=== PATIENT | male | born 1985 | race Caucasian/White ===

== ENCOUNTER 2017-05-24 21:34 | Emergency (ER) | payer BC, OTHER ==
--- NOTE | 2017-05-24 23:03 | C.PDOC ---
History Of Present Illness 32 yo male with brief low level sharp left chest discomfort which has resolved. Occurred while driving. No recent illnesses. Time Seen by Provider: 05/24/17 21:41 Chief Complaint (Nursing): Chest Pain History Per: Patient Onset/Duration Of Symptoms: Mins Current Symptoms Are (Timing): Gone Quality: Sharp Associated Symptoms: denies: Nausea, Dyspnea, Diaphoresis, Syncope Past Medical History Vital Signs: Last Vital Signs Temp 98.2 F 05/24/17 23:29 Pulse 78 05/24/17 23:29 Resp 18 05/24/17 23:29 BP 124/85 05/24/17 23:29 Pulse Ox 98 05/24/17 23:29 - Medical History PMH: HTN Other PMH: none Family History: States: Unknown Family Hx - Social History Hx Tobacco Use: No Hx Alcohol Use: No Hx Substance Use: No - Immunization History Hx Tetanus Toxoid Vaccination: No Hx Influenza Vaccination: No Hx Pneumococcal Vaccination: No Review Of Systems Constitutional: Negative for: Fever, Chills Eyes: Negative for: Pain Cardiovascular: Positive for: Chest Pain. Negative for: Palpitations, Edema, Light Headedness Respiratory: Positive for: Shortness of Breath. Negative for: Cough, Hemoptysis , SOB with Excertion Gastrointestinal: Negative for: Nausea, Vomiting, Diarrhea Musculoskeletal: Negative for: Neck Pain, Back Pain Skin: Negative for: Rash Neurological: Negative for: Weakness Physical Exam - Physical Exam Appears: Well Skin: Normal Color, Warm, No Pale, No Rash Head: Atraumatic Eye(s): bilateral: Normal Inspection, PERRL, EOMI Ear(s): Left: Normal ED Course And Treatment O2 Sat by Pulse Oximetry: 95 Disposition - Disposition Disposition: HOME/ ROUTINE Disposition Time: 02:00 Condition: IMPROVED Forms: [facility] (Lithuanian) - Clinical Impression Clinical Impression: Chest wall pain
[2017-05-24 23:30] VITALS: BP 124/85; PULSE 78; RESP 18; TEMP 98.2
--- NOTE | 2017-05-25 10:59 | RAD ---
HISTORY: chest pain COMPARISON: 06/11/2016. FINDINGS: LUNGS: The lungs are well inflated and clear. PLEURA: No significant pleural effusion identified, no pneumothorax apparent. CARDIOVASCULAR: Normal. OSSEOUS STRUCTURES: No significant abnormalities. VISUALIZED UPPER ABDOMEN: Normal. OTHER FINDINGS: None. IMPRESSION: No active pulmonary disease.
--- NOTE | 2017-05-29 11:42 | CARD ---
APPROVED REPORT EKG Measurement Heart [id number] <Conclusion> Normal sinus rhythm Normal ECG
[2017-06-15 12:17] VITALS: O2SAT 95
== END 2017-05-25 00:11 | disposition home or self-care (01) ==
LOC: C.ER 21:34
DX: R07.89 Other chest pain (principal); I10 Essential (primary) hypertension